=== PATIENT | male | born 1955 ===

== ENCOUNTER 2018-06-22 08:49 | Inpatient (IN) | payer OTHER | END 2018-06-27 13:15 | disposition home or self-care (01) | DRG 469 | LOC: C.ER 08:49 → C.9E 13:26 → C.3T 15:49 | DX: N17.9 Acute kidney failure, unspecified (principal); N10 Acute pyelonephritis; D63.8 Anemia in other chronic diseases classified elsewhere; E87.1 Hypo-osmolality and hyponatremia; I12.9 Hypertensive chronic kidney disease with stage 1 through stage 4 chronic kidney disease, or unspecified chronic kidney disease; E86.0 Dehydration; N18.9 Chronic kidney disease, unspecified; K29.70 Gastritis, unspecified, without bleeding; Z59.0 Homelessness ==

== ENCOUNTER 2018-08-17 08:28 | Outpatient (CLI) | payer OTHER | END 2018-08-17 08:29 | disposition home or self-care (01) | LOC: C.MRIC 08:28 | DX: M54.17 Radiculopathy, lumbosacral region (principal) ==